=== PATIENT | male | born 1960 | race Caucasian/White ===

== ENCOUNTER 2024-08-28 15:36 | Outpatient (CLI) | payer OTHER, SELFPAY ==
--- NOTE | ~2024-08-28 | XR_ITS ---
EXAMINATION: XR pelvis min 3V DATE: 08/28/2024 16:23 INDICATION: Sacroiliitis. TECHNIQUE: 3 views of the pelvis were obtained. COMPARISON: None. FINDINGS: There is 3 mm anterolisthesis of L4 on L5. There is mild lumbar spondylosis. No fracture. T he sacroiliac joints are normal. Surgical clips overlie the left hip. IMPRESSION: 1. Normal sacroiliac joints. Reviewed, dictated and finalized at location B.
--- NOTE | ~2024-08-28 | XR_ITS ---
Right Knee Technique: AP, lateral, and sunrise views were obtained. Clinical History: Pain Findings: No fracture or dislocation is seen. There is medial compartment narrowing, with mild tricom partmental osteophyte formation. Small joint effusion is seen. Impression: Degenerative change, as detailed above. Small joint effusion. Reviewed, dictated and finalized at location . Impression: Degenerative change, as detailed above. Small joint effusion.
== END 2024-08-28 15:37 | disposition home or self-care (01) ==
LOC: MICIMG 15:43
PROVIDERS: PCP Physical Medicine & Rehabilitation Pain Medicine; Visit Provider Physical Medicine & Rehabilitation Pain Medicine
DX: M46.1 Sacroiliitis, not elsewhere classified (principal); M17.11 Unilateral primary osteoarthritis, right knee; M25.461 Effusion, right knee
CPT/HCPCS: 72190; 73564

== ENCOUNTER 2024-09-10 15:05 | Outpatient (CLI) | payer MEDICARE, SELFPAY ==
--- NOTE | ~2024-09-10 | MR_ITS ---
EXAMINATION: MR lumbar spine wo con DATE: 09/10/2024 15:56 INDICATION: Radiculopathy and chronic low back pain TECHNIQUE: Magnetic resonance imaging (MRI) of the lumbar spine was performed without intravenous con trast. Sequences included sagittal T2-weighted FSE, sagittal T2-weighted FS FSE, sagittal T1-weighted FSE, and axial T2-weighted FSE. COMPARISON: None FINDINGS: Alignment is normal. There is however fluid intervening between the articular surfaces of the lateral L4-L5 facet joints with 5 mm AP separation of the articular surfaces suggesting potential for up to 5 mm of anterolisthesis of L4 on L5. There is similarly 2 mm separation of the articular surface at t he bilateral facet joints at L2-L3 and L3-L4. Chronic appearing mild likely physiologic anterior wedg ing at T12 and L1. There are also Schmorl's nodes along the superior endplate of T12 and the superior and inferior endplates of L1. Remaining lumbar vertebral body heights are normal. T1 hyperintense he mangioma at L2. Mild fibrofatty and fibrovascular degenerative endplate changes at the anterior super ior endplate of L5. Marrow signal is otherwise unremarkable. Mild disc height loss and annular fissur e at L4-L5. The conus medullaris terminates at L1. There is normal signal in the caudal spinal cord. Paravertebral soft tissues are unremarkable. The following disc levels are specifically discussed: T12-L1: The disc does not extend beyond the endplate margin. There is mild bilateral facet joint oste oarthritis. There is no neural foraminal stenosis. There is no central canal stenosis. L1-L2: Disc is minimally bulging. There is mild bilateral facet joint osteoarthritis. There is no kimmie ral foraminal stenosis. There is no central canal stenosis. L2-L3: Disc is mildly bulging. There is mild to moderate bilateral facet joint osteoarthritis. There is mild bilateral, right greater than left neural foraminal stenosis. There is no central canal steno sis. L3-L4: Disc is mildly bulging. There is mild to moderate bilateral facet joint osteoarthritis. There is mild bilateral neural foraminal stenosis. There is no central canal stenosis. L4-L5: Disc is bulging. There is moderate bilateral facet joint osteoarthritis. There is moderate jus ateral neural foraminal stenosis. There is mild central canal stenosis. L5-S1: Disc is mildly bulging. There is moderate bilateral facet joint osteoarthritis. There is mild bilateral neural foraminal stenosis. There is no central canal stenosis. IMPRESSION: 1. Mild to moderate lumbar spondylosis. 2. There is up to 5 mm AP separation of the articular surfaces at the bilateral L4-5 facet joints and 2 mm at the L2-L3 and L3-L4 facet joints which suggests likely increased translatory mobility with p otential for similar degree of anterolisthesis at each of these levels. Could consider lateral radiog raphs in neutral, flexion and extension for further evaluation. Reviewed, dictated and finalized at location B. IMPRESSION: 1. Mild to moderate lumbar spondylosis. 2. There is up to 5 mm AP separation of the articular surfaces at the bilateral L4-5 facet joints and 2 mm at the L2-L3 and L3-L4 facet joints which suggests likely increased translatory mobility with potential for similar degree of ante rolisthesis at each of these levels. Could consider lateral radiographs in neut ral, flexion and extension for further evaluation.
== END 2024-09-10 15:06 | disposition home or self-care (01) ==
PROVIDERS: PCP Physical Medicine & Rehabilitation Pain Medicine; Visit Provider Physical Medicine & Rehabilitation Pain Medicine
DX: M43.06 Spondylolysis, lumbar region (principal)
CPT/HCPCS: 72148